=== PATIENT | female | born 1970 | race Caucasian/White ===

== ENCOUNTER 2017-04-20 11:59 | Emergency (ER) | payer MEDICAID ==
[2017-04-20] MEDS ORDERED: SODIUM CHLORIDE 0.9% 1000ML 1,000 ML IV ONE (12:07)
[2017-04-20 12:28] LABS: BASOPHILS % (AUTO) 0.3 % (0.0-5.0); EOSINOPHILS % (AUTO) 0.4 % (0.0-8.0); HEMATOCRIT 37.1 % (36-48); LYMPHOCYTES % (AUTO) 16.5 % (21.0-51.0); MEAN CORPUSCULAR HEMOGLOBIN 30.3 pg (27.0-33.0); MEAN CORPUSCULAR VOLUME 89.2 fL (79-99); MONOCYTES % (AUTO) 5.5 % (3.0-13.0); NEUTROPHILS % (AUTO) 77.3 % (40.0-77.0); PLATELET COUNT (AUTO) 252 K/uL (130-400); RED BLOOD CELL COUNT(AUTO) 4.16 MIL/uL (4.00-5.50); RED CELL DISTRIBUTION WIDTH 12.9 % (11.0-15.5); WHITE BLOOD COUNT (AUTO) 11.4 K/uL (4.8-10.8)
[2017-04-20] MEDS ORDERED: MORPHINE SULFATE 4 MG/1ML SYG ONE (12:31)
[2017-04-20 12:54] LABS: CREATININE 1.1 mg/dL (0.5-1.5); POTASSIUM 3.5 mmol/L (3.5-5.1)
[2017-04-20 13:01] LABS: ALBUMIN 3.6 g/dL (3.5-5.0); BILIRUBIN,TOTAL 0.6 mg/dL (0.2-1.0); TOTAL PROTEIN, SERUM 7.4 g/dL (6.0-8.3)
[2017-04-20 13:23] LABS: APPEARANCE,URINE Clear (CLEAR); BILIRUBIN,URINE Negative (NEGATIVE); COLOR,URINE Yellow (YELLOW); GLUCOSE, URINE (UA) Negative (NEGATIVE); KETONES,URINE Trace mg/dL (NEGATIVE); LEUKOCYTE ESTERASE ,URINE Negative (NEGATIVE); NITRATE,URINE Negative (NEGATIVE); OCCULT BLOOD,URINE Negative (NEGATIVE); PROTEIN,URINE Trace (NEGATIVE)
[2017-04-20] MEDS ORDERED: KETOROLAC TROMETHAMINE 30MG/ML ONE (13:27)
[2017-04-20 13:56] LABS: BACTERIA,URINE None Seen /HPF (None Seen); MUCUS,URINE Moderate LPF (None Seen); RBC,URINE None Seen /HPF (0-1); WBC,URINE None Seen /HPF (0-1)
[2017-04-20] MEDS ORDERED: ONDANSETRON HCL 4 MG/2 ML VIAL ONE (15:52)
[2017-04-20] MEDS ORDERED: ORPHENADRINE CITRATE 30 MG/ML ML ONE (16:37)
[2017-04-20] MEDS ORDERED: IOPAMIDOL-370 100 ML VIAL IV ONE (18:22)
== END 2017-04-20 20:12 | disposition home or self-care (01) ==
LOC: EDH 11:59
DX: M62.830 Muscle spasm of back (principal); R55 Syncope and collapse; Z88.2 Allergy status to sulfonamides; Z98.890 Other specified postprocedural states
CPT/HCPCS: 36415; 71275; 74176; 80053; 81001; 85025; 85378; 96361; 96375; 96374; 99285; J1885; J2270; J2360; J2405; J7030; Q9967

== ENCOUNTER 2018-07-17 22:07 | Emergency (ER) | payer MEDICAID, OTHER ==
[2018-07-17 22:45] LABS: APPEARANCE,URINE Clear (CLEAR); BILIRUBIN,URINE Negative (NEGATIVE); COLOR,URINE Yellow (YELLOW); GLUCOSE, URINE (UA) Negative (NEGATIVE); KETONES,URINE Negative (NEGATIVE); LEUKOCYTE ESTERASE ,URINE Small (NEGATIVE); NITRATE,URINE Negative (NEGATIVE); OCCULT BLOOD,URINE Negative (NEGATIVE); PROTEIN,URINE Negative (NEGATIVE); UROBILINOGEN,URINE 0.2 mg/dL (0.2-1.0)
[2018-07-17 22:58] LABS: BACTERIA,URINE None Seen /HPF (None Seen); RBC,URINE None Seen /HPF (0-1); SQUAMOUS EPITHELIAL CELL,UR Rare /HPF (0-2); WBC,URINE 0-1 /HPF (0-1)
[2018-07-17] MEDS ORDERED: KETOROLAC TROMETHAMINE 30MG/ML ONE (23:03)
[2018-07-17] MEDS ORDERED: ONDANSETRON HCL 4 MG/2 ML VIAL ONE (23:03)
[2018-07-17] MEDS ORDERED: METOCLOPRAMIDE 10 MG/2 ML VIAL ONE (23:03)
[2018-07-17 23:20] LABS: CREATININE 0.8 mg/dL (0.5-1.5); POTASSIUM 3.6 mmol/L (3.5-5.1)
[2018-07-17 23:23] LABS: INR 1.02 (0.85-1.15); PARTIAL THROMBOPLASTIN TIME 32.7 SEC (26.3-35.5); PROTHROMBIN TIME 10.7 SEC (9.6-11.6)
[2018-07-17 23:24] LABS: ALBUMIN 3.8 g/dL (3.5-5.0); BILIRUBIN,TOTAL 0.2 mg/dL (0.2-1.0); TOTAL PROTEIN, SERUM 7.5 g/dL (6.0-8.3)
[2018-07-17 23:39] LABS: BASOPHILS % (AUTO) 0.9 % (0.0-5.0); EOSINOPHILS % (AUTO) 1.5 % (0.0-8.0); HEMATOCRIT 38.2 % (36-48); MEAN CORPUSCULAR HEMOGLOBIN 30.2 pg (27.0-33.0); MEAN CORPUSCULAR HGB CONC 33.5 g/dL (32.0-36.0); MEAN CORPUSCULAR VOLUME 90.1 fL (79-99); MONOCYTES % (AUTO) 7.1 % (3.0-13.0); NEUTROPHILS % (AUTO) 63.5 % (40.0-77.0); NUCLEATED RED BLOOD CELLS 0.1 % (0.0-0.19); PLATELET COUNT (AUTO) 233 K/uL (130-400); RED BLOOD CELL COUNT(AUTO) 4.24 MIL/uL (4.00-5.50); RED CELL DISTRIBUTION WIDTH 13.8 % (11.0-15.5); WHITE BLOOD COUNT (AUTO) 6.9 K/uL (4.8-10.8)
== END 2018-07-18 01:04 | disposition home or self-care (01) ==
LOC: EDH 22:07
DX: M62.830 Muscle spasm of back (principal); K59.00 Constipation, unspecified; M54.5 Low back pain; Z90.710 Acquired absence of both cervix and uterus; Z88.2 Allergy status to sulfonamides
CPT/HCPCS: 36415; 74176; 80053; 81001; 82550; 83605; 83690; 84484; 85025; 85610; 85730; 96374; 96375; 99284; J1885; J2405; J2765